=== PATIENT | female | born 1965 | race American Indian/Alaskan Native ===

== ENCOUNTER 2020-08-18 18:33 | Observation (INO) | payer SELFPAY ==
[2020-08-18] MEDS ORDERED: ASPIRIN 325 MG TAB PO ONE (18:40)
--- NOTE | 2020-08-18 19:52 | XRay Report ---
CHEST 2 VIEWS INDICATION: Chest Pain. COMPARISON: None FINDINGS: Support devices: None. Heart: Within normal limits. Lungs: No acute air space or interstitial disease. Pleura: No significant pleural effusion. No pneumothorax. Additional findings: None. IMPRESSION: 1. No acute findings. Signer Name: Jamal Young MD Signed: 08/18/2020 7:48 PM Workstation Name: [id number]
[2020-08-18 19:59] LABS: Basophils % (Auto) 0.7 % (0.0-1.8); Eosinophils % (Auto) 0.5 % (0.0-4.3); Hematocrit 35.5 % (30.3-42.9); Lymphocytes # (Auto) 1.5 K/mm3 (1.2-5.4); Lymphocytes % (Auto) 23.4 % (13.4-35.0); Mean Corpuscular HGB Conc 34 % (30-34); Mean Corpuscular Volume 87 fl (79-97); Monocytes # (Auto) 0.4 K/mm3 (0.0-0.8); Monocytes % (Auto) 6.8 % (0.0-7.3); Platelet Count 225 K/mm3 (140-440); Red Cell Distribution Width 14.3 % (13.2-15.2)
[2020-08-18 20:06] LABS: BUN/Creatinine Ratio 11; Blood Urea Nitrogen 9 mg/dL (7-17); Calcium 9.3 mg/dL (8.4-10.2); Hemolysis Index 3
[2020-08-18] MEDS ORDERED: NITROGLYCERIN 2% OINT 1 GM TP ONE (20:54)
[2020-08-18] MEDS ORDERED: ASPIRIN 325 MG TAB ONE (20:58)
--- NOTE | 2020-08-18 20:59 | Emergency Department Report ---
HPI - General Chief Complaint: Chest Pain PUI?: No Time Seen by Provider: 08/18/20 20:28 - HPI HPI: Room 26 The patient is a 54-year-old female present with a chief complaint of chest heaviness. Patient states her symptoms began 2 days ago when she awakened feeling drained and had numbness in bilateral lower extremities. The patient states the symptoms improved but then yesterday while driving she felt near syncopal and then developed chest pressure that is been constant ever since. Patient states she developed shortness of breath and nausea without vomiting associated with her chest pressure. Patient denies diaphoresis. The patient states she went to work and had episode of dizziness. The patient states this morning she continued to have the heaviness in her chest associated with shortness of breath prompting her to go to an urgent care facility. The patient was sent to the ED from urgent care facility for further evaluation. The patient states she had a stress test many years ago but has never had a cardiac catheterization ED Past Medical Hx - Past Medical History Previous Medical History?: Yes Hx Hypertension: Yes - Surgical History Past Surgical History?: Yes Additional Surgical History: Myomectomy. Ectopic x2 - Family History Family history: no significant - Social History Smoking Status: Never Smoker Substance Use Type: None (Denies illicit drug use) ED Review of Systems ROS: Stated complaint: CHEST PAIN Other details as noted in HPI Constitutional: denies: diaphoresis Respiratory: shortness of breath Cardiovascular: chest pain. denies: palpitations Endocrine: no symptoms reported Gastrointestinal: nausea. denies: vomiting Musculoskeletal: myalgia Neurological: paresthesias Physical Exam - Physical Exam Vital Signs: Vital Signs 08/18/20 18:39 Temperature 98.7 F Pulse Rate 56 L Respiratory 18 Rate Blood Pressure 167/54 O2 Sat by Pulse 100 Oximetry Physical Exam: GENERAL: The patient is well-developed well-nourished female sitting on stretcher not appearing to be in acute distress. [] HEENT: Normocephalic. Atraumatic. Extraocular motions are intact. Patient has moist mucous membranes. NECK: Supple. Trachea midline CHEST/LUNGS: Clear to auscultation. There is no respiratory distress noted. HEART/CARDIOVASCULAR: Regular. There is no tachycardia. There is no gallop rub or murmur. ABDOMEN: Abdomen is soft, nontender. Patient has normal bowel sounds. There is no abdominal distention. SKIN: There is no rash. There is no edema. There is no diaphoresis. NEURO: The patient is awake, alert, and oriented. The patient is cooperative. The patient has normal speech MUSCULOSKELETAL:There is no evidence of acute injury. ED Course Vital Signs 08/18/20 18:39 Temperature 98.7 F Pulse Rate 56 L Respiratory 18 Rate Blood Pressure 167/54 O2 Sat by Pulse 100 Oximetry ED Medical Decision Making - Lab Data Result diagrams: 08/18/20 19:13 08/18/20 19:13 - EKG Data -: EKG Interpreted by Me EKG shows normal: sinus rhythm Rate: normal - EKG Data When compared to previous EKG there are: previous EKG unavailable Interpretation: nonspecific ST-T wave oneil (T wave inversions in leads V2, V3) - Radiology Data Radiology results: report reviewed (Chest x-ray), image reviewed (Chest x-ray) interpreted by me: Chest x-ray-no focal infiltrates, no pneumothorax, no foreign body seen Findings [facility] [address] [place] [address] XRay Report Signed Patient: GABRIELA BUSH MR#: [id number] 8 : 1965 Acct:[id number] Age/Sex: 54 / F ADM Date: 08/18/20 Loc: ED Attending Dr: Ordering Physician: HARRIS BERNABE MD Date of Service: 08/18/20 Procedure(s): XR chest routine 2V Accession Number(s): [id number] cc: ED MD FLORECITA Fluoro Time In Minutes: CHEST 2 VIEWS INDICATION: Chest Pain. COMPARISON: None FINDINGS: Support devices: None. Heart: Within normal limits. Lungs: No acute air space or interstitial disease. Pleura: No significant pleural effusion. No pneumothorax. Additional findings: None. IMPRESSION: 1. No acute findings. Signer Name: Jamal Young MD Signed: 08/18/2020 7:48 PM Workstation Name: [id number] Transcribed By: VAN Dictated By: Jamal Young MD Electronically Authenticated By: Jamal Young MD Signed Date/Time: 08/18/201947 DD/ 46 TD/TT: - Differential Diagnosis ACS, pericarditis, GERD Critical care attestation.: If time is entered above; I have spent that time in minutes in the direct care of this critically ill patient, excluding procedure time. ED Disposition Clinical Impression: Chest pressure Disposition: OP ADMIT IP TO THIS HOSP Is pt being admited?: Yes Does the pt Need Aspirin: Yes Condition: Fair Time of Disposition: 21:00 (Hospitalist paged (Dr Pearl)) HEART Score - HEART Score History: Moderately suspicious EKG: Non-specific Age: 45-65 Risk factors: 1-2 risk factors Troponin: Troponin T < 0.010 ng/mL (0.00-0.029) 08/18/20 19:13 Troponin: < normal limit HEART Score: 4
[2020-08-18] MEDS ORDERED: MORPHINE 2 MG/1 ML INJ IV PRN (22:19)
[2020-08-18] MEDS ORDERED: ACETAMINOPHEN 325 MG TAB PO PRN (22:20)
[2020-08-18] MEDS ORDERED: NITROGLYCERIN 0.4 MG TAB SUBL SL PRN (22:23)
[2020-08-18] MEDS ORDERED: ONDANSETRON 4 MG/2 ML INJ IV PRN (22:23)
[2020-08-19 01:21] LABS: Creatine Kinase MB 1.4 ng/mL (0.0-4.0)
--- NOTE | 2020-08-19 02:37 | History and Physical Report ---
History of Present Illness Date of examination: 08/18/20 Date of admission: 08/18/20 21:03 Chief complaint: Chest pain History of present illness: History of presenting illness, Patient is 54 year old female presenting with pressure like chest pain going on for 2 days and associated with dizziness and near syncope, nausea but no vomiting and shortness of breath. Pain does not radiate, there is no fever, chills or cough. Past History Past Medical History: hypertension Past Surgical History: Other (Ectopic , Myomectomy) Social history: no significant social history Family history: no significant family history Medications and Allergies Allergies Allergy/AdvReac Type Severity Reaction Status Date / Time No Known Allergies Allergy Unverified 08/18/20 18:36 Home Medications Medication Instructions Recorded Confirmed Last Taken Type carvediloL [Coreg] 12.5 mg PO BID 08/18/20 08/18/20 Unknown History Active Meds: Active Medications Acetaminophen (Tylenol) 650 mg PO Q4H PRN PRN Reason: Pain, Mild (1-3) Aspirin (Aspirin) 325 mg PO QDAY [facility] Heparin Sodium (Porcine) (Heparin) 5,000 unit SUB-Q Q12HR [facility] Morphine Sulfate (Morphine) 2 mg IV Q3H PRN PRN Reason: Pain, Moderate (4-6) Nitroglycerin (Nitro-Bid 2%) 0.5 inch TP QIDNTG [facility]; Protocol Nitroglycerin (Nitrostat) 0.4 mg SL .Q5MIN PRN PRN Reason: Chest Pain Ondansetron HCl (Zofran) 4 mg IV Q8H PRN PRN Reason: Nausea And Vomiting Review of Systems Constitutional: no weight loss, no weight gain, no fever, no chills, no sweats, no night sweats, no anorexia, no fatigue, no weakness, no malaise, no lethargy, no poor appetite, no daytime sleepiness Eyes: bilateral: other (No Bilateral Eye Symptom) Ears, nose, mouth and throat: no ear pain, no ear discharge, no tinnitis, no decreased hearing, no sore throat, no headache, no vertigo Breasts: deferred Cardiovascular: chest pain, lightheadedness, shortness of breath, no orthopnea, no palpitations, no rapid/irregular heart beat, no edema, no syncope Respiratory: shortness of breath, no cough, no cough with sputum, no excessive sputum, no hemoptysis, no dyspnea on exertion, no congestion, no wheezing, no pleurisy Gastrointestinal: nausea, no abdominal pain, no vomiting, no diarrhea, no constipation, no change in bowel habits, no hematemesis, no coffee ground emesis, no BRBPR, no melena, no hematochezia, no loss of appetite, no early satiety, no heartburn, no indigestion Genitourinary Female: no dyspareunia, no dysmenorrhea, no pelvic pain, no flank pain, no dysuria, no urinary frequency, no urgency, no nocturia Rectal: no pain, no itching Musculoskeletal: no neck stiffness, no neck pain, no low back pain, no muscle weakness Integumentary: no rash, no pruritis, no redness, no sores, no wounds, no jaundice Neurological: no paralysis, no headaches, no confusion Psychiatric: no anxiety, no sleep disturbances, no suicidal ideation, no hallucinations Endocrine: no cold intolerance, no heat intolerance, no polyphagia, no excessive thirst, no polydipsia Hematologic/Lymphatic: no easy bruising Allergic/Immunologic: no persistent infections Exam - Constitutional Vitals: Temp Pulse Resp BP Pulse Ox 98.0 F 53 L 18 137/69 99 08/19/20 00:04 08/19/20 00:04 08/19/20 00:04 08/19/20 00:04 08/19/20 00:04 General appearance: Present: no acute distress - EENT Eyes: Present: PERRL ENT: hearing intact, clear oral mucosa - Neck Neck: Present: supple, normal ROM - Respiratory Respiratory effort: normal - Cardiovascular Rhythm: regular Heart Sounds: Present: S1 & S2. Absent: gallop, systolic murmur, diastolic murmur, click - Extremities Extremities: no ischemia, No edema Peripheral Pulses: within normal limits - Abdominal General gastrointestinal: Present: soft, non-tender, tender. Absent: non- distended, distended, rigid Female genitourinary: Present: deferred - Rectal Rectal Exam: deferred - Integumentary Integumentary: Present: clear, warm, dry. Absent: jaundice - Musculoskeletal Musculoskeletal: strength equal bilaterally - Psychiatric Psychiatric: appropriate mood/affect - Neurologic Neurologic: CNII-XII intact HEART Score - HEART Score EKG: Non-specific Age: 45-65 Risk factors: 1-2 risk factors Troponin: Troponin T < 0.010 ng/mL (0.00-0.029) 08/19/20 00:29 Troponin: < normal limit - Critical Actions Critical Actions: 0-3 pts:0.9-1.7%risk of adverse cardiac event.Candidate for discharge Results - Labs CBC & Chem 7: 08/18/20 19:13 08/18/20 19:13 Labs: Laboratory Last Values WBC 6.3 K/mm3 (4.5-11.0) 08/18/20 19:13 RBC 4.10 M/mm3 (3.65-5.03) 08/18/20 19:13 Hgb 12.0 gm/dl (10.1-14.3) 08/18/20 19:13 Hct 35.5 % (30.3-42.9) 08/18/20 19:13 MCV 87 fl (79-97) 08/18/20 19:13 MCH 29 pg (28-32) 08/18/20 19:13 MCHC 34 % (30-34) 08/18/20 19:13 RDW 14.3 % (13.2-15.2) 08/18/20 19:13 Plt Count 225 K/mm3 (140-440) 08/18/20 19:13 Lymph % (Auto) 23.4 % (13.4-35.0) 08/18/20 19:13 [place] % (Auto) 6.8 % (0.0-7.3) 08/18/20 19:13 Eos % (Auto) 0.5 % (0.0-4.3) 08/18/20 19:13 Baso % (Auto) 0.7 % (0.0-1.8) 08/18/20 19:13 Lymph # (Auto) 1.5 K/mm3 (1.2-5.4) 08/18/20 19:13 [place] # (Auto) 0.4 K/mm3 (0.0-0.8) 08/18/20 19:13 Eos # (Auto) 0.0 K/mm3 (0.0-0.4) 08/18/20 19:13 Baso # (Auto) 0.0 K/mm3 (0.0-0.1) 08/18/20 19:13 Seg Neutrophils % 68.6 % (40.0-70.0) 08/18/20 19:13 Seg Neutrophils # 4.3 K/mm3 (1.8-7.7) 08/18/20 19:13 Sodium 143 mmol/L (137-145) 08/18/20 19:13 Potassium 4.4 mmol/L (3.6-5.0) 08/18/20 19:13 Chloride 103.8 mmol/L (98-107) 08/18/20 19:13 Carbon Dioxide 27 mmol/L (22-30) 08/18/20 19:13 Anion Gap 17 mmol/L 08/18/20 19:13 BUN 9 mg/dL (7-17) 08/18/20 19:13 Creatinine 0.8 mg/dL (0.6-1.2) 08/18/20 19:13 Estimated GFR > 60 ml/min 08/18/20 19:13 BUN/Creatinine Ratio 11 % 08/18/20 19:13 Glucose 98 mg/dL (65-100) 08/18/20 19:13 Calcium 9.3 mg/dL (8.4-10.2) 08/18/20 19:13 Total Creatine Kinase 149 units/L (30-135) H 08/19/20 00:29 CK-MB (CK-2) 1.4 ng/mL (0.0-4.0) 08/19/20 00:29 CK-MB (CK-2) Rel Index 0.9 (0-4) 08/19/20 00:29 Troponin T < 0.010 ng/mL (0.00-0.029) 08/19/20 00:29 Turner/IV: Voiding Method Toilet IV Catheter Type [right hand] Peripheral IV Assessment and Plan - Patient Problems (1) Chest pressure Current Visit: Yes Status: Acute Plan to address problem: 1. Observation on Telemetry 2. Serial Cardiac Enzymes 3. NPO 4. Lexiscan Stress Test 5. Aspirin Po 6. Nitroglycerin Paste and sublingual 7. I.V Morphine for pain 8. I.V Zofran for nausea and vomiting 9. Tylenol for headache 10 Oxygen by Nasal Cannula
[2020-08-19 06:23] LABS: Creatine Kinase MB 1.3 ng/mL (0.0-4.0)
[2020-08-19] MEDS: NITROGLYCERIN 2% OINT 1 GM TP SCH ×3 (06:31→17:49)
[2020-08-19] MEDS ORDERED: REGADENOSON 0.4 MG/5 ML INJ IV ONE (07:30)
--- NOTE | 2020-08-19 12:29 | Consultation ---
History of Present Illness Consult date: 08/19/20 Consult reason: chest pain History of present illness: The patient is a 54-year-old woman with history of hypertension, admitted to the hospital with chest pain. She describes a poorly characterized left-sided chest pain which was nonexertional, and associated with some dizziness. She presented to the emergency room where the ECG was normal sinus rhythm, normal ECG. During her course in the hospital, there was persistent sinus bradycardia. It will be noted that the patient is on carvedilol 12.5 mg during this time, which has been continued during the admission. She has undergone a negative rule out NE protocol. Today, she underwent a stress test during which she exercised for 6 minutes of a Mango protocol, no chest pain, no ST changes of ischemia, thallium images are pending. Past History Past Medical History: hypertension Past Surgical History: Other (Ectopic , Myomectomy) Social history: no significant social history Family history: no significant family history Medications and Allergies Allergies Allergy/AdvReac Type Severity Reaction Status Date / Time No Known Allergies Allergy Unverified 08/18/20 18:36 Home Medications Medication Instructions Recorded Confirmed Last Taken Type carvediloL [Coreg] 12.5 mg PO BID 08/18/20 08/18/20 Unknown History Active Meds: Active Medications Acetaminophen (Tylenol) 650 mg PO Q4H PRN PRN Reason: Pain, Mild (1-3) Aspirin (Aspirin) 325 mg PO QDAY [facility] Carvedilol (Coreg) 12.5 mg PO BID [facility] Heparin Sodium (Porcine) (Heparin) 5,000 unit SUB-Q Q12HR [facility] Morphine Sulfate (Morphine) 2 mg IV Q3H PRN PRN Reason: Pain, Moderate (4-6) Nitroglycerin (Nitro-Bid 2%) 0.5 inch TP QIDNTG [facility]; Protocol Last Admin: 08/19/20 06:31 Dose: Not Given Documented by: Nitroglycerin (Nitrostat) 0.4 mg SL .Q5MIN PRN PRN Reason: Chest Pain Ondansetron HCl (Zofran) 4 mg IV Q8H PRN PRN Reason: Nausea And Vomiting Review of Systems Cardiovascular: chest pain Physical Examination Vital Signs Temp Pulse Resp BP Pulse Ox 98.7 F 56 L 18 167/54 100 08/18/20 18:39 08/18/20 18:39 08/18/20 18:39 08/18/20 18:39 08/18/20 18:39 General appearance: no acute distress HEENT: Positive: PERRL Neck: Positive: neck supple Cardiac: Positive: Regular Rhythm Lungs: Positive: clear to auscultation Neuro: Positive: Grossly Intact Abdomen: Positive: Soft Female genitourinary: deferred Skin: Positive: Clear Extremities: Absent: edema Results 08/18/20 19:13 08/18/20 19:13 Cardiac Enzymes 08/19/20 08/19/20 Range/Units 00:29 04:54 CK-MB (CK-2) 1.4 1.3 (0.0-4.0) ng/mL CBC 08/18/20 Range/Units 19:13 WBC 6.3 (4.5-11.0) K/mm3 RBC 4.10 (3.65-5.03) M/mm3 Hgb 12.0 (10.1-14.3) gm/dl Hct 35.5 (30.3-42.9) % Plt Count 225 (140-440) K/mm3 Lymph # (Auto) 1.5 (1.2-5.4) K/mm3 [place] # (Auto) 0.4 (0.0-0.8) K/mm3 Eos # (Auto) 0.0 (0.0-0.4) K/mm3 Baso # (Auto) 0.0 (0.0-0.1) K/mm3 Comprehensive Metabolic Panel 08/18/20 Range/Units 19:13 Sodium 143 (137-145) mmol/L Potassium 4.4 (3.6-5.0) mmol/L Chloride 103.8 (98-107) mmol/L Carbon Dioxide 27 (22-30) mmol/L BUN 9 (7-17) mg/dL Creatinine 0.8 (0.6-1.2) mg/dL Glucose 98 (65-100) mg/dL Calcium 9.3 (8.4-10.2) mg/dL EKG interpretations - Telemetry EKG Rhythm: Sinus Rhythm Assessment and Plan - Patient Problems (1) Chest pain Current Visit: Yes Status: Acute Plan to address problem: Chest pain is atypical, there are no ischemic ECG changes and cardiac isoenzymes are normal. Today, she underwent an exercise stress test during which exercised for 6 minutes of a Mango protocol, no chest pain and no ST changes. Thallium images are pending. (2) Hypertension Current Visit: Yes Status: Acute Plan to address problem: We will stop carvedilol due to patient's sinus bradycardia, and instead use amlodipine 5 to 10 mg for hypertension management. (3) Bradycardia Current Visit: Yes Status: Acute Plan to address problem: Bradycardia is likely exacerbated by carvedilol therapy, we will stop carvedilol.
[2020-08-19] MEDS ORDERED: carvediloL 12.5 MG TAB PO SCH (13:00)
[2020-08-19] MEDS: HEPARIN 5,000 UNIT/1 ML VIAL SUB-Q SCH ×2 (14:00→22:45)
--- NOTE | 2020-08-19 14:35 | Progress Note ---
Assessment and Plan - Patient Problems (1) Bradycardia Current Visit: Yes Status: Acute Plan to address problem: Presented with bradycardia Home labetalol stopped and amlodipine started Cardiology consult (2) Chest pressure Current Visit: Yes Status: Acute Plan to address problem: Patient presented with complaints of chest pressure, she does not complain of any chest pressure on 08/19 Cardiology consulted 08/19 GHADA showed global left ventricular systolic function is normal, estimated EF is 55 to 60%, mild concentric LVH, trace to mild MR, mild TR, evidence of borderline probably hypertension, RVSP is calculated at 2820 m mercury (3) Hypertension Current Visit: Yes Status: Chronic Plan to address problem: Amlodipine started Blood pressure monitor per protocol Vasotec as needed for systolic blood pressure greater than 160 (4) DVT prophylaxis Current Visit: Yes Status: Acute Plan to address problem: SCDs to bilateral lower extremities while in bed Heparin subcu History Interval history: This is a 54-year-old female with hypertension who presents to the emergency department on 08/18 with pressure-like chest pain with no radiation ongoing for 2 days associated with dizziness, near syncope, nausea with no vomiting and shortness of breath. Patient was scheduled to have a stress test this morning. Overnight patient was in sinus bradycardia and cardiology was consulted. Bilateral carotid ultrasound was ordered. Patient denies any chest pain overnight. Hospitalist Physical - Constitutional Vitals: Temp Pulse Resp BP Pulse Ox 99.0 F 50 L 18 163/85 100 08/19/20 07:58 08/19/20 07:58 08/19/20 07:58 08/19/20 10:51 08/19/20 07:58 General appearance: Present: no acute distress - EENT Eyes: Present: PERRL, EOM intact ENT: hearing intact, clear oral mucosa, dentition normal - Neck Neck: Present: normal ROM - Respiratory Respiratory effort: normal Respiratory: bilateral: CTA - Cardiovascular Rhythm: regular Heart Sounds: Present: S1 & S2. Absent: systolic murmur, diastolic murmur - Extremities Extremities: no ischemia, pulses intact, pulses symmetrical, No edema, normal temperature, normal color, Full ROM Peripheral Pulses: within normal limits - Abdominal General gastrointestinal: soft, non-tender, non-distended, normal bowel sounds - Integumentary Integumentary: Present: clear, warm, dry - Psychiatric Psychiatric: cooperative - Neurologic Neurologic: CNII-XII intact, no focal deficits, moves all extremities HEART Score - HEART Score EKG: Non-specific Age: 45-65 Risk factors: 1-2 risk factors Troponin: Troponin T < 0.010 ng/mL (0.00-0.029) 08/19/20 04:54 Troponin: < normal limit - Critical Actions Critical Actions: 0-3 pts:0.9-1.7%risk of adverse cardiac event.Candidate for discharge Results - Labs CBC & Chem 7: 08/18/20 19:13 08/18/20 19:13 Labs: Laboratory Last Values WBC 6.3 K/mm3 (4.5-11.0) 08/18/20 19:13 RBC 4.10 M/mm3 (3.65-5.03) 08/18/20 19:13 Hgb 12.0 gm/dl (10.1-14.3) 08/18/20 19:13 Hct 35.5 % (30.3-42.9) 08/18/20 19:13 MCV 87 fl (79-97) 08/18/20 19:13 MCH 29 pg (28-32) 08/18/20 19:13 MCHC 34 % (30-34) 08/18/20 19:13 RDW 14.3 % (13.2-15.2) 08/18/20 19:13 Plt Count 225 K/mm3 (140-440) 08/18/20 19:13 Lymph % (Auto) 23.4 % (13.4-35.0) 08/18/20 19:13 [place] % (Auto) 6.8 % (0.0-7.3) 08/18/20 19:13 Eos % (Auto) 0.5 % (0.0-4.3) 08/18/20 19:13 Baso % (Auto) 0.7 % (0.0-1.8) 08/18/20 19:13 Lymph # (Auto) 1.5 K/mm3 (1.2-5.4) 08/18/20 19:13 [place] # (Auto) 0.4 K/mm3 (0.0-0.8) 08/18/20 19:13 Eos # (Auto) 0.0 K/mm3 (0.0-0.4) 08/18/20 19:13 Baso # (Auto) 0.0 K/mm3 (0.0-0.1) 08/18/20 19:13 Seg Neutrophils % 68.6 % (40.0-70.0) 08/18/20 19:13 Seg Neutrophils # 4.3 K/mm3 (1.8-7.7) 08/18/20 19:13 Sodium 143 mmol/L (137-145) 08/18/20 19:13 Potassium 4.4 mmol/L (3.6-5.0) 08/18/20 19:13 Chloride 103.8 mmol/L (98-107) 08/18/20 19:13 Carbon Dioxide 27 mmol/L (22-30) 08/18/20 19:13 Anion Gap 17 mmol/L 08/18/20 19:13 BUN 9 mg/dL (7-17) 08/18/20 19:13 Creatinine 0.8 mg/dL (0.6-1.2) 08/18/20 19:13 Estimated GFR > 60 ml/min 08/18/20 19:13 BUN/Creatinine Ratio 11 % 08/18/20 19:13 Glucose 98 mg/dL (65-100) 08/18/20 19:13 Calcium 9.3 mg/dL (8.4-10.2) 08/18/20 19:13 Total Creatine Kinase 146 units/L (30-135) H 08/19/20 04:54 CK-MB (CK-2) 1.3 ng/mL (0.0-4.0) 08/19/20 04:54 CK-MB (CK-2) Rel Index 0.8 (0-4) 08/19/20 04:54 Troponin T < 0.010 ng/mL (0.00-0.029) 08/19/20 04:54 - Diagnostic Impressions Diagnostic Impressions: Echocardiogram 08/19/20 11:39 Transthoracic Echocardiogram Conclusions *Global left ventricular systolic function is normal. *The estimated ejection fraction is 55-60%. *Mild concentric left ventricular hypertrophy is observed. *There is trace-mild mitral regurgitation. *There is mild tricuspid regurgitation. *There is evidence of borderline pulmonary hypertension. *The right ventricular systolic pressure is calculated at 28 mmHg. Findings Left Ventricle: The left ventricular chamber size is normal. Mild concentric left ventricular hypertrophy is observed. Global left ventricular systolic function is normal. The estimated ejection fraction is 55-60%. Left Atrium: The left atrial chamber size is normal. Right Ventricle: The right ventricular cavity size is normal. The right ventricular global systolic function is normal. Right Atrium: The right atrial cavity size is normal. Aortic Valve: The aortic valve is trileaflet. The aortic valve leaflets are mildly thickened. There is no evidence of aortic regurgitation. There is no evidence of aortic stenosis. Mitral Valve: The mitral valve leaflets appear normal. There is trace of mitral regurgitation. There is no evidence of mitral stenosis. Tricuspid Valve: There is mild tricuspid regurgitation. The right ventricular systolic pressure is calculated at 28 mmHg. There is evidence of borderline pulmonary hypertension. Pulmonic Valve: There is mild pulmonic regurgitation. Pericardium: There is no pericardial effusion. Aorta: There is no dilatation of the aortic root. Venous: The inferior vena cava appears normal in size. Measurements Chambers 2D Name Value Normal Range IVSd (2D) 0.91 cm (0.6 - 1.1) LVPWd (2D) 0.86 cm (0.6 - 1.1) LVIDd (2D) 4.41 cm (3.7 - 5.6) LVIDs (2D) 2.92 cm (2 - 3.8) LV FS (2D) 33.72 % - EF Teichholz (2D) 62.75 % - Ao root diameter (2D) 2.72 cm (2 - 3.7) Volumes/Mass Name Value Normal Range LA ESV SP 4CH (A/L) 26.38 ml - LA ESV SP 2CH (A/L) 24.08 ml - LA ESV BP (A/L) 25.58 ml - LA ESV SP 4CH (MOD) 23.62 ml - LA ESV SP 2CH (MOD) 24.49 ml - Diastolic/Systolic Function Name Value Normal Range MV E-wave Vmax 0.86 m/sec - MV deceleration time 209.02 msec - MV A-wave Vmax 0.74 m/sec - MV E:A ratio 1.17 ratio - Aortic Valve Name Value Normal Range AV Vmax 1.5 m/sec - AV VTI 32.57 cm - AV peak gradient 9.04 mmHg - AV mean gradient 4.26 mmHg - LVOT diameter 2.01 cm - LVOT Vmax 1.21 m/sec - LVOT VTI 26.2 cm - LVOT peak gradient 5.86 mmHg - LVOT mean gradient 3.12 mmHg - SV LVOT 82.7 ml - SCOTT (continuity Vmax) 2.54 cm2 - SCOTT (continuity VTI) 2.54 cm2 - Tricuspid Valve Name Value Normal Range TR Vmax 2.39 m/sec - TR peak gradient 22.8 mmHg - RVSP 28 mmHg - Pulmonic Valve/Qp:Qs Name Value Normal Range PV Vmax 0.85 m/sec - PV peak gradient 2.87 mmHg - VT end-diastolic Vmax 1.13 m/sec - PV acceleration time 133.21 msec - Turner/IV: Voiding Method Toilet IV Catheter Type [right hand] Peripheral IV Active Medications - Current Medications Current Medications: Generic Name Dose Route Start Last Admin Trade Name Freq PRN Reason Stop Dose Admin Acetaminophen 650 mg 08/18/20 22:20 Tylenol PO Q4H PRN Pain, Mild (1-3) Amlodipine Besylate 5 mg 08/19/20 13:00 Amlodipine PO QDAY [facility] Aspirin 325 mg 08/19/20 10:00 Aspirin PO QDAY [facility] Heparin Sodium (Porcine) 5,000 unit 08/19/20 10:00 Heparin SUB-Q Q12HR [facility] Morphine Sulfate 2 mg 08/18/20 22:19 Morphine IV Q3H PRN Pain, Moderate (4-6) Nitroglycerin 0.5 inch 08/19/20 06:00 08/19/20 06:31 Nitro-Bid 2% TP Not Given QIDNTG [facility] Protocol Nitroglycerin 0.4 mg 08/18/20 22:23 Nitrostat SL .Q5MIN PRN Chest Pain Ondansetron HCl 4 mg 08/18/20 22:23 Zofran IV Q8H PRN Nausea And Vomiting
[2020-08-19] MEDS ORDERED: ENALAPRILAT 2.5 MG/2 ML INJ IV PRN (14:47)
--- NOTE | 2020-08-19 14:48 | Vascular Lab Report ---
"DUPLEX DOPPLER ULTRASOUND CAROTID, BILATERAL INDICATION: near syncope. COMPARISON: None available. FINDINGS: RIGHT CAROTID: No significant atherosclerotic plaque. CCA velocity: 66 cm/sec. ICA peak systolic velocity: 107 cm/sec. ICA/CCA PSV Ratio: 1.6. Right Vertebral Artery: Antegrade flow. LEFT CAROTID: No significant atherosclerotic plaque. CCA velocity: 74 cm/sec. ICA peak systolic velocity: 90 cm/sec. ICA/CCA PSV Ratio: 1.2. Left Vertebral Artery: Antegrade flow. IMPRESSION: 1. Right Internal Carotid Artery: Less than 50% diameter stenosis. 2. Left Internal Carotid Artery: Less than 50% diameter stenosis. Velocity criteria are extrapolated from diameter data as defined by the Society of Radiologists in Ul trasound Consensus Conference, Radiology 2003; 229;340-346. Degree of || ICA PSV || Plaque || ICA/CCA Stenosis (%) || (cm/sec) || estimate (%) || PSV Ratio - Normal...............<125..............None.................<2.0 - <50....................<125..............<50....................<2.0 - 50-69................125-230.........>50....................2.0-4.0 - >70 but <100....>230..............>50....................>4.0 - Near...................High, low, .....visible................variable occlusion or none - Total...................None.............visible;................N/A occlusion no lumen Signer Name: Alok Vogel MD Signed: 08/19/2020 2:44 PM Workstation Name: [id number]"
[2020-08-19] MEDS: ASPIRIN 325 MG TAB PO SCH (15:38)
[2020-08-19] MEDS: amLODIPine 5 MG TAB PO SCH (15:38)
--- NOTE | 2020-08-19 15:53 | Treadmill Report ---
THALLIUM STRESS TEST LEFT VENTRICLE: Left ventricular chamber size is within normal spread. Perfusion study demonstrates homogeneous uptake of the tracer in all segments, no defects identified. Gated analysis demonstrates normal left ventricular systolic function, ejection fraction 72%. CONCLUSION: Normal myocardial perfusion study. JOB# [id number] CA/NTS
[2020-08-20 07:10] LABS: BUN/Creatinine Ratio 14; Blood Urea Nitrogen 11 mg/dL (7-17); Hemolysis Index 6
[2020-08-20] MEDS: NITROGLYCERIN 2% OINT 1 GM TP SCH ×4 (08:58→17:21)
[2020-08-20] MEDS: ASPIRIN 325 MG TAB PO SCH (09:46)
[2020-08-20] MEDS: HEPARIN 5,000 UNIT/1 ML VIAL SUB-Q SCH ×2 (09:47→21:29)
--- NOTE | 2020-08-20 10:09 | Progress Note ---
Assessment and Plan Chest pain is atypical normal MPI normal LVEF, 55-60% by echo Hypertension carvedilol discontinued due to patient's sinus bradycardia and changed to amlodipine 5mg for management. Bradycardia carvedilol therapy discontinued Will check a TSH and magnesium. Subjective Date of service: 08/20/20 Interval history: Patient is resting in bed comfortably. She denies chest pain, no shortness of breath and no dizziness. Sinus bradycardia, rate 48 on telemetry. Objective Vital Signs Temp Pulse Resp BP Pulse Ox 08/20/20 08:05 98.2 F 48 L 18 109/54 99 08/20/20 08:00 18 08/20/20 04:20 98.0 F 46 L 18 124/52 97 08/20/20 02:59 48 L 08/19/20 23:27 98.0 F 53 L 18 127/57 98 08/19/20 19:33 98.9 F 50 L 18 120/61 98 08/19/20 18:18 40 L 08/19/20 16:31 97.9 F 48 L 18 127/59 100 08/19/20 10:51 163/85 08/19/20 10:50 161/89 08/19/20 10:49 177/90 08/19/20 10:48 192/72 08/19/20 10:19 150/74 - Physical Examination General: No Apparent Distress HEENT: Positive: PERRL Neck: Positive: neck supple Cardiac: Positive: Bradycardia Lungs: Positive: Decreased Breath Sounds Neuro: Positive: Grossly Intact Abdomen: Positive: Soft Extremities: Absent: edema - Labs and Meds Comprehensive Metabolic Panel 08/20/20 Range/Units 05:38 Sodium 142 (137-145) mmol/L Potassium 3.8 (3.6-5.0) mmol/L Chloride 106.4 (98-107) mmol/L Carbon Dioxide 25 (22-30) mmol/L BUN 11 (7-17) mg/dL Creatinine 0.8 (0.6-1.2) mg/dL Glucose 79 (65-100) mg/dL Calcium 9.0 (8.4-10.2) mg/dL
[2020-08-20] MEDS: amLODIPine 5 MG TAB PO SCH ×2 (11:00→17:30)
--- NOTE | 2020-08-20 15:24 | Progress Note ---
<SOLISALDOCachorro - Last Filed: 08/20/20 15:25> Assessment and Plan - Patient Problems (1) Bradycardia Current Visit: Yes Status: Acute Plan to address problem: Presented with bradycardia Home labetalol stopped and amlodipine started Cardiology consult Anticipate discharge tomorrow if bradycardia subsides (2) Chest pressure Current Visit: Yes Status: Resolved Plan to address problem: Patient presented with complaints of chest pressure, she does not complain of any chest pressure on 08/19 Cardiology consulted 08/19 GHADA showed global left ventricular systolic function is normal, estimated EF is 55 to 60%, mild concentric LVH, trace to mild MR, mild TR, evidence of borderline probably hypertension, RVSP is calculated at 28 mmHg Started on famotidine as she describes her initial admitting chest pain to be more epigastric pain and states that she took Pepcid years ago. (3) Hypertension Current Visit: Yes Status: Chronic Plan to address problem: Amlodipine started Blood pressure monitor per protocol Vasotec as needed for systolic blood pressure greater than 160 (4) DVT prophylaxis Current Visit: Yes Status: Acute Plan to address problem: SCDs to bilateral lower extremities while in bed Heparin subcu History Interval history: This is a 54-year-old female with hypertension who presents to the emergency department on 08/18 with pressure-like chest pain with no radiation ongoing for 2 days associated with dizziness, near syncope, nausea with no vomiting and shortness of breath. Patient was scheduled to have a stress test this morning. Overnight patient was in sinus bradycardia and cardiology was consulted. Patient continues to be bradycardic, home carvedilol stopped yesterday. Possible discharge tomorrow morning if bradycardia subsides. Patient does not complain of any chest pain, dizziness, weakness while at bedside. She states she used to take H2 receptor librado years ago therefore she was restarted on Pepcid as she states her admitting chest pressure was epigastric. 08/19 echocardiogram, sinus bradycardia, cardiology consulted Hospitalist Physical - Constitutional Vitals: Temp Pulse Resp BP Pulse Ox 98.4 F 51 L 18 118/56 100 08/20/20 11:52 08/20/20 11:52 08/20/20 11:52 08/20/20 11:52 08/20/20 11:52 General appearance: Present: no acute distress - EENT Eyes: Present: EOM intact ENT: hearing intact, clear oral mucosa - Neck Neck: Present: supple, normal ROM - Respiratory Respiratory effort: normal Respiratory: bilateral: CTA - Cardiovascular Rhythm: regular Heart Sounds: Present: S1 & S2. Absent: systolic murmur, diastolic murmur - Extremities Extremities: no ischemia, pulses intact, pulses symmetrical, No edema, normal temperature, normal color, Full ROM Peripheral Pulses: within normal limits - Abdominal General gastrointestinal: soft, non-tender, non-distended, normal bowel sounds - Integumentary Integumentary: Present: clear, warm, dry - Psychiatric Psychiatric: appropriate mood/affect, cooperative - Neurologic Neurologic: CNII-XII intact, no focal deficits, moves all extremities HEART Score - HEART Score EKG: Non-specific Age: 45-65 Risk factors: 1-2 risk factors Troponin: Troponin T < 0.010 ng/mL (0.00-0.029) 08/19/20 04:54 Troponin: < normal limit - Critical Actions Critical Actions: 0-3 pts:0.9-1.7%risk of adverse cardiac event.Candidate for discharge Results - Labs CBC & Chem 7: 08/18/20 19:13 08/20/20 05:38 Labs: Laboratory Last Values WBC 6.3 K/mm3 (4.5-11.0) 08/18/20 19:13 RBC 4.10 M/mm3 (3.65-5.03) 08/18/20 19:13 Hgb 12.0 gm/dl (10.1-14.3) 08/18/20 19:13 Hct 35.5 % (30.3-42.9) 08/18/20 19:13 MCV 87 fl (79-97) 08/18/20 19:13 MCH 29 pg (28-32) 08/18/20 19:13 MCHC 34 % (30-34) 08/18/20 19:13 RDW 14.3 % (13.2-15.2) 08/18/20 19:13 Plt Count 225 K/mm3 (140-440) 08/18/20 19:13 Lymph % (Auto) 23.4 % (13.4-35.0) 08/18/20 19:13 [place] % (Auto) 6.8 % (0.0-7.3) 08/18/20 19:13 Eos % (Auto) 0.5 % (0.0-4.3) 08/18/20 19:13 Baso % (Auto) 0.7 % (0.0-1.8) 08/18/20 19:13 Lymph # (Auto) 1.5 K/mm3 (1.2-5.4) 08/18/20 19:13 [place] # (Auto) 0.4 K/mm3 (0.0-0.8) 08/18/20 19:13 Eos # (Auto) 0.0 K/mm3 (0.0-0.4) 08/18/20 19:13 Baso # (Auto) 0.0 K/mm3 (0.0-0.1) 08/18/20 19:13 Seg Neutrophils % 68.6 % (40.0-70.0) 08/18/20 19:13 Seg Neutrophils # 4.3 K/mm3 (1.8-7.7) 08/18/20 19:13 Sodium 142 mmol/L (137-145) 08/20/20 05:38 Potassium 3.8 mmol/L (3.6-5.0) 08/20/20 05:38 Chloride 106.4 mmol/L (98-107) 08/20/20 05:38 Carbon Dioxide 25 mmol/L (22-30) 08/20/20 05:38 Anion Gap 14 mmol/L 08/20/20 05:38 BUN 11 mg/dL (7-17) 08/20/20 05:38 Creatinine 0.8 mg/dL (0.6-1.2) 08/20/20 05:38 Estimated GFR > 60 ml/min 08/20/20 05:38 BUN/Creatinine Ratio 14 % 08/20/20 05:38 Glucose 79 mg/dL (65-100) 08/20/20 05:38 Calcium 9.0 mg/dL (8.4-10.2) 08/20/20 05:38 Magnesium 2.40 mg/dL (1.7-2.3) H 08/20/20 09:15 Total Creatine Kinase 146 units/L (30-135) H 08/19/20 04:54 CK-MB (CK-2) 1.3 ng/mL (0.0-4.0) 08/19/20 04:54 CK-MB (CK-2) Rel Index 0.8 (0-4) 08/19/20 04:54 Troponin T < 0.010 ng/mL (0.00-0.029) 08/19/20 04:54 TSH 2.740 mlU/mL (0.270-4.200) 08/20/20 09:15 Free T4 1.12 ng/dL (0.76-1.46) 08/20/20 09:15 - Diagnostic Impressions Diagnostic Impressions: Echocardiogram 08/19/20 11:39 Transthoracic Echocardiogram Conclusions *Global left ventricular systolic function is normal. *The estimated ejection fraction is 55-60%. *Mild concentric left ventricular hypertrophy is observed. *There is trace-mild mitral regurgitation. *There is mild tricuspid regurgitation. *There is evidence of borderline pulmonary hypertension. *The right ventricular systolic pressure is calculated at 28 mmHg. Findings Left Ventricle: The left ventricular chamber size is normal. Mild concentric left ventricular hypertrophy is observed. Global left ventricular systolic function is normal. The estimated ejection fraction is 55-60%. Left Atrium: The left atrial chamber size is normal. Right Ventricle: The right ventricular cavity size is normal. The right ventricular global systolic function is normal. Right Atrium: The right atrial cavity size is normal. Aortic Valve: The aortic valve is trileaflet. The aortic valve leaflets are mildly thickened. There is no evidence of aortic regurgitation. There is no evidence of aortic stenosis. Mitral Valve: The mitral valve leaflets appear normal. There is trace of mitral regurgitation. There is no evidence of mitral stenosis. Tricuspid Valve: There is mild tricuspid regurgitation. The right ventricular systolic pressure is calculated at 28 mmHg. There is evidence of borderline pulmonary hypertension. Pulmonic Valve: There is mild pulmonic regurgitation. Pericardium: There is no pericardial effusion. Aorta: There is no dilatation of the aortic root. Venous: The inferior vena cava appears normal in size. Measurements Chambers 2D Name Value Normal Range IVSd (2D) 0.91 cm (0.6 - 1.1) LVPWd (2D) 0.86 cm (0.6 - 1.1) LVIDd (2D) 4.41 cm (3.7 - 5.6) LVIDs (2D) 2.92 cm (2 - 3.8) LV FS (2D) 33.72 % - EF Teichholz (2D) 62.75 % - Ao root diameter (2D) 2.72 cm (2 - 3.7) Volumes/Mass Name Value Normal Range LA ESV SP 4CH (A/L) 26.38 ml - LA ESV SP 2CH (A/L) 24.08 ml - LA ESV BP (A/L) 25.58 ml - LA ESV SP 4CH (MOD) 23.62 ml - LA ESV SP 2CH (MOD) 24.49 ml - Diastolic/Systolic Function Name Value Normal Range MV E-wave Vmax 0.86 m/sec - MV deceleration time 209.02 msec - MV A-wave Vmax 0.74 m/sec - MV E:A ratio 1.17 ratio - Aortic Valve Name Value Normal Range AV Vmax 1.5 m/sec - AV VTI 32.57 cm - AV peak gradient 9.04 mmHg - AV mean gradient 4.26 mmHg - LVOT diameter 2.01 cm - LVOT Vmax 1.21 m/sec - LVOT VTI 26.2 cm - LVOT peak gradient 5.86 mmHg - LVOT mean gradient 3.12 mmHg - SV LVOT 82.7 ml - SCOTT (continuity Vmax) 2.54 cm2 - SCOTT (continuity VTI) 2.54 cm2 - Tricuspid Valve Name Value Normal Range TR Vmax 2.39 m/sec - TR peak gradient 22.8 mmHg - RVSP 28 mmHg - Pulmonic Valve/Qp:Qs Name Value Normal Range PV Vmax 0.85 m/sec - PV peak gradient 2.87 mmHg - NH end-diastolic Vmax 1.13 m/sec - PV acceleration time 133.21 msec - Turner/IV: Voiding Method Toilet IV Catheter Type [right hand] Peripheral IV Active Medications - Current Medications Current Medications: Generic Name Dose Route Start Last Admin Trade Name Freq PRN Reason Stop Dose Admin Acetaminophen 650 mg 08/18/20 22:20 Tylenol PO Q4H PRN Pain, Mild (1-3) Amlodipine Besylate 5 mg 08/19/20 13:00 08/20/20 11:00 Amlodipine PO Not Given QDAY [facility] Aspirin 325 mg 08/19/20 10:00 08/20/20 09:46 Aspirin PO 325 mg QDAY [facility] Administration Enalaprilat 0.625 mg 08/19/20 14:47 Vasotec IV Q6HR PRN Hypertension Heparin Sodium (Porcine) 5,000 unit 08/19/20 10:00 08/20/20 09:47 Heparin SUB-Q 5,000 unit Q12HR [facility]O Administration Morphine Sulfate 2 mg 08/18/20 22:19 Morphine IV Q3H PRN Pain, Moderate (4-6) Nitroglycerin 0.5 inch 08/19/20 06:00 08/20/20 13:27 Nitro-Bid 2% TP Not Given QIDNTG [facility] Protocol Nitroglycerin 0.4 mg 08/18/20 22:23 Nitrostat SL .Q5MIN PRN Chest Pain Ondansetron HCl 4 mg 08/18/20 22:23 Zofran IV Q8H PRN Nausea And Vomiting <ANGIE FORD M - Last Filed: 08/21/20 13:16> Hospitalist Physical - Constitutional Vitals: Temp Pulse Resp BP Pulse Ox 98.4 F 48 L 18 132/68 99 08/21/20 08:02 08/21/20 08:02 08/21/20 08:02 08/21/20 08:02 08/21/20 08:02 HEART Score - HEART Score Troponin: Troponin T < 0.010 ng/mL (0.00-0.029) 08/19/20 04:54 Results - Labs CBC & Chem 7: 08/18/20 19:13 08/21/20 00:10 Labs: Laboratory Last Values WBC 6.3 K/mm3 (4.5-11.0) 08/18/20 19:13 RBC 4.10 M/mm3 (3.65-5.03) 08/18/20 19:13 Hgb 12.0 gm/dl (10.1-14.3) 08/18/20 19:13 Hct 35.5 % (30.3-42.9) 08/18/20 19:13 MCV 87 fl (79-97) 08/18/20 19:13 MCH 29 pg (28-32) 08/18/20 19:13 MCHC 34 % (30-34) 08/18/20 19:13 RDW 14.3 % (13.2-15.2) 08/18/20 19:13 Plt Count 225 K/mm3 (140-440) 08/18/20 19:13 Lymph % (Auto) 23.4 % (13.4-35.0) 08/18/20 19:13 [place] % (Auto) 6.8 % (0.0-7.3) 08/18/20 19:13 Eos % (Auto) 0.5 % (0.0-4.3) 08/18/20 19:13 Baso % (Auto) 0.7 % (0.0-1.8) 08/18/20 19:13 Lymph # (Auto) 1.5 K/mm3 (1.2-5.4) 08/18/20 19:13 [place] # (Auto) 0.4 K/mm3 (0.0-0.8) 08/18/20 19:13 Eos # (Auto) 0.0 K/mm3 (0.0-0.4) 08/18/20 19:13 Baso # (Auto) 0.0 K/mm3 (0.0-0.1) 08/18/20 19:13 Seg Neutrophils % 68.6 % (40.0-70.0) 08/18/20 19:13 Seg Neutrophils # 4.3 K/mm3 (1.8-7.7) 08/18/20 19:13 Sodium 142 mmol/L (137-145) 08/21/20 00:10 Potassium 3.6 mmol/L (3.6-5.0) 08/21/20 00:10 Chloride 105.8 mmol/L (98-107) 08/21/20 00:10 Carbon Dioxide 23 mmol/L (22-30) 08/21/20 00:10 Anion Gap 17 mmol/L 08/21/20 00:10 BUN 11 mg/dL (7-17) 08/21/20 00:10 Creatinine 0.8 mg/dL (0.6-1.2) 08/21/20 00:10 Estimated GFR > 60 ml/min 08/21/20 00:10 BUN/Creatinine Ratio 14 % 08/21/20 00:10 Glucose 87 mg/dL (65-100) 08/21/20 00:10 Calcium 9.0 mg/dL (8.4-10.2) 08/21/20 00:10 Magnesium 2.40 mg/dL (1.7-2.3) H 08/20/20 09:15 Total Creatine Kinase 146 units/L (30-135) H 08/19/20 04:54 CK-MB (CK-2) 1.3 ng/mL (0.0-4.0) 08/19/20 04:54 CK-MB (CK-2) Rel Index 0.8 (0-4) 08/19/20 04:54 Troponin T < 0.010 ng/mL (0.00-0.029) 08/19/20 04:54 TSH 2.740 mlU/mL (0.270-4.200) 08/20/20 09:15 Free T4 1.12 ng/dL (0.76-1.46) 08/20/20 09:15 - Diagnostic Impressions Diagnostic Impressions: Echocardiogram 08/19/20 11:39 Transthoracic Echocardiogram Conclusions *Global left ventricular systolic function is normal. *The estimated ejection fraction is 55-60%. *Mild concentric left ventricular hypertrophy is observed. *There is trace-mild mitral regurgitation. *There is mild tricuspid regurgitation. *There is evidence of borderline pulmonary hypertension. *The right ventricular systolic pressure is calculated at 28 mmHg. Findings Left Ventricle: The left ventricular chamber size is normal. Mild concentric left ventricular hypertrophy is observed. Global left ventricular systolic function is normal. The estimated ejection fraction is 55-60%. Left Atrium: The left atrial chamber size is normal. Right Ventricle: The right ventricular cavity size is normal. The right ventricular global systolic function is normal. Right Atrium: The right atrial cavity size is normal. Aortic Valve: The aortic valve is trileaflet. The aortic valve leaflets are mildly thickened. There is no evidence of aortic regurgitation. There is no evidence of aortic stenosis. Mitral Valve: The mitral valve leaflets appear normal. There is trace of mitral regurgitation. There is no evidence of mitral stenosis. Tricuspid Valve: There is mild tricuspid regurgitation. The right ventricular systolic pressure is calculated at 28 mmHg. There is evidence of borderline pulmonary hypertension. Pulmonic Valve: There is mild pulmonic regurgitation. Pericardium: There is no pericardial effusion. Aorta: There is no dilatation of the aortic root. Venous: The inferior vena cava appears normal in size. Measurements Chambers 2D Name Value Normal Range IVSd (2D) 0.91 cm (0.6 - 1.1) LVPWd (2D) 0.86 cm (0.6 - 1.1) LVIDd (2D) 4.41 cm (3.7 - 5.6) LVIDs (2D) 2.92 cm (2 - 3.8) LV FS (2D) 33.72 % - EF Teichholz (2D) 62.75 % - Ao root diameter (2D) 2.72 cm (2 - 3.7) Volumes/Mass Name Value Normal Range LA ESV SP 4CH (A/L) 26.38 ml - LA ESV SP 2CH (A/L) 24.08 ml - LA ESV BP (A/L) 25.58 ml - LA ESV SP 4CH (MOD) 23.62 ml - LA ESV SP 2CH (MOD) 24.49 ml - Diastolic/Systolic Function Name Value Normal Range MV E-wave Vmax 0.86 m/sec - MV deceleration time 209.02 msec - MV A-wave Vmax 0.74 m/sec - MV E:A ratio 1.17 ratio - Aortic Valve Name Value Normal Range AV Vmax 1.5 m/sec - AV VTI 32.57 cm - AV peak gradient 9.04 mmHg - AV mean gradient 4.26 mmHg - LVOT diameter 2.01 cm - LVOT Vmax 1.21 m/sec - LVOT VTI 26.2 cm - LVOT peak gradient 5.86 mmHg - LVOT mean gradient 3.12 mmHg - SV LVOT 82.7 ml - SCOTT (continuity Vmax) 2.54 cm2 - SCOTT (continuity VTI) 2.54 cm2 - Tricuspid Valve Name Value Normal Range TR Vmax 2.39 m/sec - TR peak gradient 22.8 mmHg - RVSP 28 mmHg - Pulmonic Valve/Qp:Qs Name Value Normal Range PV Vmax 0.85 m/sec - PV peak gradient 2.87 mmHg - NH end-diastolic Vmax 1.13 m/sec - PV acceleration time 133.21 msec - Turner/IV: Voiding Method Toilet IV Catheter Type [right hand] Peripheral IV Active Medications - Current Medications Current Medications: Generic Name Dose Route Start Last Admin Trade Name Freq PRN Reason Stop Dose Admin Acetaminophen 650 mg 08/18/20 22:20 Tylenol PO Q4H PRN Pain, Mild (1-3) Amlodipine Besylate 5 mg 08/19/20 13:00 08/21/20 09:25 Amlodipine PO 5 mg QDAY [facility] Administration Aspirin 325 mg 08/19/20 10:00 08/21/20 09:25 Aspirin PO 325 mg QDAY [facility] Administration Enalaprilat 0.625 mg 08/19/20 14:47 Vasotec IV Q6HR PRN Hypertension Heparin Sodium (Porcine) 5,000 unit 08/19/20 10:00 08/21/20 09:25 Heparin SUB-Q 5,000 unit Q12HR [facility] Administration Morphine Sulfate 2 mg 08/18/20 22:19 Morphine IV Q3H PRN Pain, Moderate (4-6) Nitroglycerin 0.5 inch 08/19/20 06:00 08/21/20 11:03 Nitro-Bid 2% TP Not Given QIDNTG [facility] Protocol Nitroglycerin 0.4 mg 08/18/20 22:23 Nitrostat SL .Q5MIN PRN Chest Pain Ondansetron HCl 4 mg 08/18/20 22:23 Zofran IV Q8H PRN Nausea And Vomiting Pantoprazole Sodium 20 mg 08/20/20 16:00 08/21/20 09:25 Protonix PO 20 mg QDAC [facility]O Administration
[2020-08-20] MEDS: PANTOPRAZOLE 20 MG TAB PO SCH (16:34)
[2020-08-21 01:04] LABS: BUN/Creatinine Ratio 14; Blood Urea Nitrogen 11 mg/dL (7-17); Hemolysis Index 14
[2020-08-21] MEDS: NITROGLYCERIN 2% OINT 1 GM TP SCH ×2 (06:28→11:03)
--- NOTE | 2020-08-21 07:51 | Progress Note ---
Assessment and Plan Chest pain is atypical normal MPI normal LVEF, 55-60% by echo Hypertension Improving on amlodipine. Bradycardia Stable patient currently asymptomatic. Beta-librado has been discontinued. Magnesium and thyroid hormone are normal. [facility] cardiac standpoint Outpatient monitoring of blood pressure and bradycardia Subjective Date of service: 08/21/20 Principal diagnosis: Bradycardia Interval history: No significant events overnight. Patient doing well Objective Vital Signs Temp Pulse Resp BP Pulse Ox 08/21/20 06:28 44 L 123/69 08/21/20 04:33 50 L 08/21/20 03:52 98.3 F 44 L 16 123/69 97 08/21/20 02:00 53 L 08/20/20 23:51 98.4 F 52 L 16 132/65 98 08/20/20 20:00 18 08/20/20 19:34 98.9 F 45 L 16 144/71 100 08/20/20 18:00 90 08/20/20 16:04 98.4 F 55 L 18 157/78 100 08/20/20 11:52 98.4 F 51 L 18 118/56 100 08/20/20 11:00 109/54 08/20/20 10:00 90 08/20/20 08:05 98.2 F 48 L 18 109/54 99 08/20/20 08:00 18 - Physical Examination Narrative exam: General: No Apparent Distress HEENT: NAD Neck: neck supple Cardiac: S1-S2 heard faint 2/6 systolic murmur Lungs: Normal basilar breath sounds heard Neuro: Grossly Intact Abdomen: Soft Extremities: No edema noted General: No Apparent Distress HEENT: Positive: PERRL Neck: Positive: neck supple Neuro: Positive: Grossly Intact Abdomen: Positive: Soft Skin: Positive: Clear Extremities: Absent: edema - Labs and Meds Comprehensive Metabolic Panel 08/21/20 Range/Units 00:10 Sodium 142 (137-145) mmol/L Potassium 3.6 (3.6-5.0) mmol/L Chloride 105.8 (98-107) mmol/L Carbon Dioxide 23 (22-30) mmol/L BUN 11 (7-17) mg/dL Creatinine 0.8 (0.6-1.2) mg/dL Glucose 87 (65-100) mg/dL Calcium 9.0 (8.4-10.2) mg/dL
[2020-08-21 08:27] VITALS: BP 132/68
[2020-08-21] MEDS: amLODIPine 5 MG TAB PO SCH (09:25)
[2020-08-21] MEDS: HEPARIN 5,000 UNIT/1 ML VIAL SUB-Q SCH (09:25)
[2020-08-21] MEDS: PANTOPRAZOLE 20 MG TAB PO SCH (09:25)
[2020-08-21] MEDS: ASPIRIN 325 MG TAB PO SCH (09:25)
--- NOTE | 2020-08-21 10:39 | Discharge Summary ---
Providers - Providers Date of Admission: 08/18/20 21:03 Attending physician: ANGIE FORD MD 08/19/20 09:10 Consult to Physician [CONS] Routine Comment: Consulting Provider: BRANDI WILSON Physician Instructions: Reason For Exam: Near syncope, bradycardia Primary care physician: RN SCHOOL Hospitalization Condition: Stable Pertinent studies: 08/19 GHADA: showed global left ventricular systolic function is normal, estimated EF is 55 to 60%, mild concentric LVH, trace to mild MR, mild TR, evidence of borderline probably hypertension, RVSP is calculated at 28 mmHg 08/19 bilateral carotid duplex Doppler ultrasound: Right Internal Carotid Artery: Less than 50% diameter stenosis. Left Internal Carotid Artery: Less than 50% diameter stenosis. 08/18 chest x-ray: No acute findings. Hospital course: This is a 54-year-old female with hypertension who presents to the emergency department on 08/18 with pressure-like chest pain with no radiation ongoing for 2 days associated with dizziness, near syncope, nausea with no vomiting and shortness of breath. Overnight on 08/19 patient was in sinus bradycardia and cardiology was consulted and home carvedilol was stopped. She underwent a GHADA on 08/19 bilateral Doppler duplex carotid ultrasound. Though she remains bradycardic, she remains asymptomatic and she will be discharged home to self- care. Patient has been instructed to follow-up with primary care physician and cardiology outpatient within 1 to 2 weeks of discharge. (1) Bradycardia Current Visit: Yes Status: Acute Plan to address problem: Presented with bradycardia Continue amlodipine Follow-up with cardiology outpatient for monitoring (2) Chest pressure Current Visit: Yes Status: Resolved Plan to address problem: Patient presented with complaints of chest pressure however she does not complain of chest pressure anymore. Cardiology consulted for persistent bradycardia, she will need to follow-up with cardiology outpatient for monitoring 08/19 GHADA showed global left ventricular systolic function is normal, estimated EF is 55 to 60%, mild concentric LVH, trace to mild MR, mild TR, evidence of borderline probably hypertension, RVSP is calculated at 28 mmHg 08/19 bilateral carotid duplex Doppler ultrasound: Right Internal Carotid Artery: Less than 50% diameter stenosis. Left Internal Carotid Artery: Less than 50% diameter stenosis. She will need to continue her famotidine Follow-up with your primary care physician after discharge (3) Hypertension Current Visit: Yes Status: Chronic Plan to address problem: Continue amlodipine Blood pressure monitor per PCP instruction Disposition: DC-01 TO HOME OR SELFCARE Time spent for discharge: 35 Core Measure Documentation - Palliative Care Palliative Care/ Comfort Measures: Not Applicable - Core Measures Any of the following diagnoses?: none Exam - Constitutional Vitals: Temp Pulse Resp BP Pulse Ox 98.4 F 48 L 18 132/68 99 08/21/20 08:02 08/21/20 08:02 08/21/20 08:02 08/21/20 08:02 08/21/20 08:02 General appearance: Present: no acute distress - EENT Eyes: Present: PERRL, EOM intact ENT: hearing intact, clear oral mucosa - Neck Neck: Present: supple, normal ROM - Respiratory Respiratory effort: normal Respiratory: bilateral: CTA - Cardiovascular Rhythm: regular Heart Sounds: Present: S1 & S2. Absent: systolic murmur - Extremities Extremities: no ischemia, pulses intact, pulses symmetrical, No edema, normal temperature, normal color, Full ROM Peripheral Pulses: within normal limits - Abdominal General gastrointestinal: Present: soft, non-tender, non-distended, normal bowel sounds - Integumentary Integumentary: Present: clear, warm, dry - Musculoskeletal Musculoskeletal: strength equal bilaterally - Psychiatric Psychiatric: appropriate mood/affect, cooperative - Neurologic Neurologic: CNII-XII intact, no focal deficits, moves all extremities - Allied Health Allied health notes reviewed: nursing, social work, case management Plan Activity: advance as tolerated Diet: regular Special Instructions: record daily BP diary Additional Instructions: Report to nearest emergency department or contact your primary care physician if you have worsening symptoms. Follow-up with your primary care physician within 1 to 2 weeks of discharge. Follow-up with rubber washer within 1 to 2 weeks of discharge. Follow up with: PRIMARY MD PALOMA [Primary Care Provider] - 7 Days BRANDI WILSON MD [Staff Physician] - 7 Days Forms: Work/School Excuse Out Patient Prescriptions: amLODIPine 5 mg PO QDAY #30 tablet Pantoprazole [Protonix TAB] 20 mg PO QDAC #30 tablet.
== END 2020-08-21 16:03 | disposition home or self-care (01) ==
LOC: ED 18:33 → 4A 21:03
PROVIDERS: ADMIT Internal Medicine; ATTEND Internal Medicine
DX: R07.89 Other chest pain (principal); I10 Essential (primary) hypertension; R00.1 Bradycardia, unspecified; Z79.899 Other long term (current) drug therapy
CPT/HCPCS: 36415; 71046; 78452; 80048; 82550; 82553; 83735; 84439; 84443; 84484; 85025; 93005; 93017; 93306; 93880; 96372; 99285; A9502; G0378; J1644